=== PATIENT | male | born 1950 | race Caucasian/White ===

== ENCOUNTER → 2020-08-03 07:05 | Outpatient (REF) | payer MEDICARE, SELFPAY | LOC: ANHLAB 07:05 | PROVIDERS: Visit Provider Nurse Practitioner | DX: C44.319 Basal cell carcinoma of skin of other parts of face (principal); C44.320 Squamous cell carcinoma of skin of unspecified parts of face | CPT/HCPCS: 88305; 88331 ==

== ENCOUNTER → 2021-02-25 12:32 | Outpatient (REF) | payer MEDICARE, SELFPAY | LOC: ANHLAB 12:32 | PROVIDERS: PCP Emergency Medicine; Visit Provider Surgery Plastic and Reconstructive Surgery | DX: C44.42 Squamous cell carcinoma of skin of scalp and neck (principal) | CPT/HCPCS: 88305 ==

== ENCOUNTER → 2021-04-12 07:12 | Outpatient (REF) | payer MEDICARE, SELFPAY | LOC: ANHLAB 07:12 | PROVIDERS: PCP Emergency Medicine; Visit Provider Nurse Practitioner | DX: C44.519 Basal cell carcinoma of skin of other part of trunk (principal); C44.319 Basal cell carcinoma of skin of other parts of face | CPT/HCPCS: 88305; 88331 ==

== ENCOUNTER → 2021-07-05 08:34 | Outpatient (REF) | payer MEDICARE, SELFPAY | LOC: ANHLAB 08:34 | PROVIDERS: PCP Emergency Medicine; Visit Provider Nurse Practitioner | DX: C44.329 Squamous cell carcinoma of skin of other parts of face (principal); C44.42 Squamous cell carcinoma of skin of scalp and neck | CPT/HCPCS: 88305; 88331 ==

== ENCOUNTER → 2021-07-12 08:40 | Outpatient (REF) | payer MEDICARE, SELFPAY | LOC: ANHLAB 08:40 | PROVIDERS: PCP Emergency Medicine; Visit Provider Nurse Practitioner | DX: C44.619 Basal cell carcinoma of skin of left upper limb, including shoulder (principal); C44.41 Basal cell carcinoma of skin of scalp and neck | CPT/HCPCS: 88305; 88331 ==